=== PATIENT | female | born 1945 | race African-American/Black ===

== ENCOUNTER → 2016-10-03 | Outpatient (CLI) | payer MEDICARE ==
--- NOTE | 2016-10-03 13:37 | KCIC ---
Bilateral digital screening mammograms with CAD: HISTORY Routine screening. COMPARISON Comparison is made to previous studies dated back to 09/28/2013. FINDINGS Breast density category B. The skin and nipples show no abnormalities. No abnormal lymph nodes are seen in the axilla. The breast parenchyma shows scattered fibroglandular density. There continues to be a small nodular density in the lower inner quadrant of the left breast which is unchanged. There are no new dominant masses, suspicious calcifications or architectural distortions. IMPRESSION No evidence of malignancy. Recommend routine annual mammographic screening. This study was interpreted with the benefit of Computerized Aided Detection (CAD). Mammography is not 100% sensitive in detecting breast cancer. Therefore, a self breast exam and a clinical breast exam are very important. A negative mammogram does not negate a clinically suspicious finding and should not result in a delay in biopsying a clinically suspicious abnormality. BI-RADS category 2: Benign. This patient's information has been entered into a reminder system for the patient to be notified with the results of this examination and a target date for her next mammograms. Electronically signed by: Carina Hernandez MD (Oct 03, 2016 13:36:05)
== END | disposition home or self-care (01) ==
LOC: KCIC MAMMO 09:28
PROVIDERS: ATTEND Family Medicine
DX: Z12.31 Encounter for screening mammogram for malignant neoplasm of breast (principal)
CPT/HCPCS: G0202; 77067

== ENCOUNTER → 2016-10-24 | Day surgery (SDC) | payer MEDICARE ==
[~2016-10-24] MED LIST: ACET650T89 PO; AMLO2.5T PO; ASPI325T4 PO; CRESTOR10 MG PO; FAMO-63 PO; HYDROmorphone 2 MG/ML VIAL IV PRN; IV RINGERS,LACTATED 1000ML 1,000 ML IV SCH; LIDOCAINE 1% 1 ML SYRINGE. ID PRN; LISI1TAB3 PO; MORPHINE SULFATE 2 MG/ML DISP.SYRIN. IV PRN; ONDANSETRON PF 4 MG/2 ML VIAL. IV PRN; PROCHLORPERAZINE 10 MG/2 ML VIAL. IV PRN; PROPOFOL 40 ML IV ONE; fentaNYL PF VIAL 100 MCG/2 ML VIAL IV PRN
[2016-10-24 13:53] VITALS: BP 112/51
== END | disposition home or self-care (01) ==
LOC: ENDOS 11:42
PROVIDERS: ATTEND Internal Medicine Gastroenterology
DX: Z12.11 Encounter for screening for malignant neoplasm of colon (principal); K64.0 First degree hemorrhoids; K57.30 Diverticulosis of large intestine without perforation or abscess without bleeding; I10 Essential (primary) hypertension; E78.00 Pure hypercholesterolemia, unspecified; Z86.73 Personal history of transient ischemic attack (TIA), and cerebral infarction without residual deficits; Z82.49 Family history of ischemic heart disease and other diseases of the circulatory system; Z90.710 Acquired absence of both cervix and uterus
CPT/HCPCS: G0121; J2704

== ENCOUNTER → 2017-10-09 | Outpatient (CLI) | payer MEDICARE | END | disposition home or self-care (01) | LOC: KCIC MAMMO 11:57 | DX: Z12.31 Encounter for screening mammogram for malignant neoplasm of breast (principal); E78.00 Pure hypercholesterolemia, unspecified; I10 Essential (primary) hypertension | CPT/HCPCS: 77063; 77067 ==

== ENCOUNTER → 2017-10-17 | Outpatient (CLI) | payer MEDICARE | END | disposition home or self-care (01) | LOC: KCIC DEXA 12:24 | DX: M81.0 Age-related osteoporosis without current pathological fracture (principal) | CPT/HCPCS: 77080 ==

== ENCOUNTER → 2018-10-13 | Outpatient (CLI) | payer MEDICARE ==
[2016-10-24 13:53] VITALS: BP 112/51
[~2018-10-13] MED LIST changes: -AMLO2.5T PO; +AMLO2.5T5 PO; -ASPI325T4 PO; +ASPI325T8 PO; -HYDROmorphone 2 MG/ML VIAL IV PRN; -IV RINGERS,LACTATED 1000ML 1,000 ML IV SCH; -LIDOCAINE 1% 1 ML SYRINGE. ID PRN; -MORPHINE SULFATE 2 MG/ML DISP.SYRIN. IV PRN; -ONDANSETRON PF 4 MG/2 ML VIAL. IV PRN; -PROCHLORPERAZINE 10 MG/2 ML VIAL. IV PRN; -PROPOFOL 40 ML IV ONE; -fentaNYL PF VIAL 100 MCG/2 ML VIAL IV PRN
--- NOTE | 2018-10-14 10:40 | KCIC ---
Bilateral digital screening mammograms with 3-D tomosynthesis: Reason for examination: Routine screening. Comparison is made to previous studies dated 10/09/2017 and 10/03/2016. Bilateral mammograms in CC and oblique projections were obtained with 2-D imaging and 3-D tomosynthesis imaging on a Siemens Inspiration unit and reviewed on the workstation. Interpretation was made with the benefit of CAD. The skin and nipples show no abnormalities. No abnormal axillary lymph nodes are seen. The breast parenchyma shows scattered fatty and fibroglandular density. (Breast density: Category B.) There continue to be small parenchymal densities which are unchanged. There are no new dominant masses, suspicious calcifications or architectural distortion. Impression: No evidence of malignancy. Recommend routine screening. BI-RAD Category 2: Benign. "Our facility is accredited by the [employer] Mammography Program." This patient's information has been entered into a reminder system for the patient to be notified with the results of her examination and a target date for the next mammogram. Electronically signed by: Mel Hernandez MD (10/14/2018 10:37 AM) [id number]
== END | disposition home or self-care (01) ==
LOC: KCIC MAMMO 09:17
PROVIDERS: ATTEND Family Medicine
DX: Z12.31 Encounter for screening mammogram for malignant neoplasm of breast (principal)
CPT/HCPCS: 77063; 77067

== ENCOUNTER → 2020-06-28 | Outpatient (CLI) | payer MEDICARE ==
[2016-10-24 13:53] VITALS: BP 112/51
[~2020-06-28] MED LIST changes: +LISI1TAB23 PO; -LISI1TAB3 PO
--- NOTE | 2020-06-28 17:32 | KCIC ---
Bilateral digital screening mammograms and tomosynthesis Reason for examination: Routine screening. Comparison is made to previous study dated October 13, 2018 and priors Routine CC and MLO digital views obtained. Interpretation was made with the benefit of CAD. The skin and nipples show no abnormalities. No abnormal lymph nodes are seen. The breast parenchyma i s scattered fibroglandular elements. (Breast density: Category B.) There are no suspicious masses, avila spicious calcifications or architectural distortions. Benign calcifications. 1 cm left inner lower br east anterior depth oval circumscribed mass stable to prior studies for over 2 years considered benig n. Right upper outer breast mid depth subcentimeter intramammary lymph node is stable. Right upper avila bareolar breast glandular asymmetry stable, benign. Impression: Negative mammogram. Recommend routine screening. BI-RADS Category 2: Benign. "Our facility is accredited by the [employer] Mammography [employer]." This patient's information has been entered into a reminder system for the patient to be notified wit h the results of her examination and a target date for the next mammogram. Electronically signed by: Sonny Casiano MD (06/28/2020 5:29 PM) [id number]
== END ==
LOC: KCIC MAMMO 09:58
PROVIDERS: ATTEND Nurse Practitioner Family
DX: Z12.31 Encounter for screening mammogram for malignant neoplasm of breast (principal)
CPT/HCPCS: 77063; 77067

== ENCOUNTER 2021-03-31 10:04 | Inpatient (IN) | payer MEDICARE ==
[~2021-03-31] VITALS: Ht 170.2 cm; Wt 72.7 kg
--- NOTE | 2021-03-31 10:43 | PHYS DOC ---
Past Medical History Past Medical History: High Cholesterol, Hypertension, Stroke Additional Past Medical Histor: stroke 2007 left sided weakness Past Surgical History: No Surgical History Smoking Status: Never Smoker Alcohol Use: None Drug Use: None General Adult EDM: Chief Complaint: HIP PAIN HPI: HPI: Patient is a 75-year-old female that presents today with left hip and low back pain. Patient states she woke this morning and went to the restroom and had shooting pains down her left leg. Patient has a history of stroke which is left her left side weak and she uses that leg for pivoting. She states the pain when it does occur goes down her back of her leg and wraps around the front. Patient denies trauma or falling. Patient was told in 2018 that she had some herniated disc in her back but the physician felt they were not surgical at that time. Patient only takes Aleve as needed for pain. Patient denies loss of bowel or bladder control. Review of Systems: Review of Systems: Constitutional: Denies fever or chills. [] Eyes: Denies change in visual acuity. [] HENT: Denies nasal congestion or sore throat. [] Respiratory: Denies cough or shortness of breath. [] Cardiovascular: Denies chest pain or edema. [] GI: Denies abdominal pain, nausea, vomiting, bloody stools or diarrhea. [] : Denies dysuria. [] Musculoskeletal: back pain Integument: Denies rash. [] Neurologic: shooting pain down left leg Endocrine: Denies polyuria or polydipsia. [] Lymphatic: Denies swollen glands. [] Psychiatric: Denies depression or anxiety. [] Heart Score: C/O Chest Pain: N/A Risk Factors: Risk Factors: DM, Current or recent (<one month) smoker, HTN, HLP, family history of CAD, obesity. Risk Scores: Score 0 - 3: 2.5% MACE over next 6 weeks - Discharge Home Score 4 - 6: 20.3% MACE over next 6 weeks - Admit for Clinical Observation Score 7 - 10: 72.7% MACE over next 6 weeks - Early Invasive Strategies Current Medications: Norvasc Lisinopril crestor Advil PRN Allergies: Allergies: Allergies Coded Allergies Type Severity Reaction Last Updated Verified No Known Drug Allergies 10/24/16 No Physical Exam: PE: Constitutional: Well developed, well nourished, no acute distress, non-toxic appearance. [] HENT: Normocephalic, atraumatic, bilateral external ears normal, oropharynx moist, no oral exudates, nose normal. [] Eyes: PERRLA, EOMI, conjunctiva normal, no discharge. [] Neck: Normal range of motion, no tenderness, supple, no stridor. [] Cardiovascular:Heart rate regular rhythm, no murmur [] Lungs & Thorax: Bilateral breath sounds clear to auscultation [] Abdomen: Bowel sounds normal, soft, no tenderness, no masses, no pulsatile masses. [] Skin: Warm, dry, no erythema, no rash. [] Back: tenderness with palpation to low back, no step offs noted. straight leg raise done on right leg and patient had immediate shooting pain down left leg that radiated to back of thigh that wraps around the front. patient has residual weakness in left leg due to stroke. patient wears left brace on foot to help w ith drop foot. sensory is decreased in left leg, patient states that is normal for her since stroke. Extremities: left leg weakness noted, patient states that is normal. Neurologic: Alert and oriented X 3, normal motor function, normal sensory function, no focal deficits noted. [] Psychologic: Affect normal, judgement normal, mood normal. [] Current Patient Data: Labs: Laboratory Tests Test 03/31/21 11:12 03/31/21 11:25 03/31/21 11:40 White Blood Count 6.7 x10^3/uL Red Blood Count 4.39 x10^6/uL Hemoglobin 13.0 g/dL Hematocrit 38.7 % Mean Corpuscular Volume 88 fL Mean Corpuscular Hemoglobin 30 pg Mean Corpuscular Hemoglobin Concent 34 g/dL Red Cell Distribution Width 14.5 % Platelet Count 214 x10^3/uL Neutrophils (%) (Auto) 68 % Lymphocytes (%) (Auto) 24 % Monocytes (%) (Auto) 6 % Eosinophils (%) (Auto) 1 % Basophils (%) (Auto) 1 % Neutrophils # (Auto) 4.5 x10^3/uL Lymphocytes # (Auto) 1.6 x10^3/uL Monocytes # (Auto) 0.4 x10^3/uL Eosinophils # (Auto) 0.1 x10^3/uL Basophils # (Auto) 0.0 x10^3/uL Urine Collection Type Unknown Urine Color Yellow Urine Clarity Clear Urine pH 6.5 Urine Specific Alexander 1.015 Urine Protein Negative mg/dL Urine Glucose (UA) Negative mg/dL Urine Ketones (Stick) Negative mg/dL Urine Blood Trace Urine Nitrite Negative Urine Bilirubin Negative Urine Urobilinogen Dipstick 1.0 mg/dL Urine Leukocyte Esterase Trace Urine RBC 1-2 /HPF Urine WBC Occ /HPF Urine Squamous Epithelial Cells Mod /LPF Urine Bacteria 0 /HPF Sodium Level 139 mmol/L Potassium Level 4.0 mmol/L Chloride Level 104 mmol/L Carbon Dioxide Level 27 mmol/L Anion Gap 8 Blood Urea Nitrogen 19 mg/dL Creatinine 1.1 mg/dL Estimated GFR (Cockcroft-Gault) 58.9 BUN/Creatinine Ratio 17 Glucose Level 123 mg/dL Calcium Level 9.2 mg/dL Total Bilirubin 1.1 mg/dL Aspartate Amino Transf (AST/SGOT) 23 U/L Alanine Aminotransferase (ALT/SGPT) 35 U/L Alkaline Phosphatase 75 U/L Total Protein 7.9 g/dL Albumin 4.0 g/dL Albumin/Globulin Ratio 1.0 Current Medications Medications (Trade) Dose Ordered Sig/Felicity Route PRN Reason Start Time Stop Time Status Last Admin Dose Admin Fentanyl Citrate (Fentanyl 2ml Vial) 50 mcg 1X ONCE IVP 03/31/21 11:00 03/31/21 11:01 DC 03/31/21 11:42 Fentanyl Citrate (Fentanyl 2ml Vial) 50 mcg PRN Q1HR PRN IVP PAIN 03/31/21 12:15 04/01/21 12:14 03/31/21 12:53 Vital Signs: 1200: 142/66 HR 71 EKG: EKG: [] Radiology/Procedures: Radiology/Procedures: [PROCEDURE: HIP LEFT 1 VIEW WITH PELVIS EXAM: Pelvis and left hip, 2 views. HISTORY: Pain. COMPARISON: None. FINDINGS: A frontal view of the pelvis and frog-leg view left hip are obtained. There is no fracture, dislocation or subluxation. There is degenerative change involving the lower lumbar spine, not formally assessed on this exam. There is minimal bilateral hip osteoarthritis. IMPRESSION: No acute osseous finding.] Course & Med Decision Making: Course & Med Decision Making Pertinent Labs and Imaging studies reviewed. (See chart for details) [] Spoke with Dr. Melara about patient and concerns with patient safety at home. Dr. Melara is has accepted this patient as an admission. Patient admitted to [facility] for further evaluation of radiculopathy pain Dragon Disclaimer: Jodi Disclaimer: This electronic medical record was generated, in whole or in part, using a voice recognition dictation system. Departure Departure Impression: Primary Impression: Lumbar radiculopathy, acute Disposition: ADMITTED INPATIENT Admitting Physician: CARA Condition: STABLE Referrals: ZEV HOLLOWAY APRN (PCP) NAM BALL APRN Mar 31, 2021 10:43
[2021-03-31] MEDS ORDERED: fentaNYL PF VIAL 100 MCG/2 ML VIAL IVP ONE (11:00)
--- NOTE | 2021-03-31 11:16 | RAD ---
EXAM: Pelvis and left hip, 2 views. HISTORY: Pain. COMPARISON: None. FINDINGS: A frontal view of the pelvis and frog-leg view left hip are obtained. There is no fracture, dislocation or subluxation. There is degenerative change involving the lower lumbar spine, not forma lly assessed on this exam. There is minimal bilateral hip osteoarthritis. IMPRESSION: No acute osseous finding. Electronically signed by: Angela Beauchamp MD (03/31/2021 11:13 AM) [id number]
[2021-03-31 11:22] LABS: BASO % 1 % (0-3); EOS # 0.1 x10^3/uL (0.0-0.7); EOS % 1 % (0-3); HEMATOCRIT 38.7 % (36.0-47.0); LYMPH # 1.6 x10^3/uL (1.0-4.8); LYMPH % 24 % (24-48); MEAN CORPUSCULAR HEMOGLOBIN 30 pg (25-35); MEAN CORPUSCULAR HGB CONC 34 g/dL (31-37); MEAN CORPUSCULAR VOLUME 88 fL (79-100); MONO # 0.4 x10^3/uL (0.0-1.1); MONO % 6 % (0-9); NEUT # 4.5 x10^3/uL (1.8-7.7); NEUT % 68 % (31-73); PLATELET COUNT 214 x10^3/uL (140-400); RED BLOOD COUNT 4.39 x10^6/uL (3.50-5.40); RED CELL DISTRIBUTION WIDTH 14.5 % (11.5-14.5); WHITE BLOOD COUNT 6.7 x10^3/uL (4.0-11.0)
[2021-03-31 11:48] LABS: BILIRUBIN,URINE NEGATIVE (NEG); CLARITY,URINE CLEAR; COLOR,URINE YELLOW; NITRITE,URINE NEGATIVE (NEG); PH,URINE 6.5 (<5.0-8.0); PROTEIN,URINE NEGATIVE (NEG-TRACE)
[2021-03-31 11:56] LABS: CALCIUM 9.2 mg/dL (8.5-10.1); CREATININE 1.1 mg/dL (0.6-1.0); GFR 58.9
[2021-03-31 12:02] LABS: TOTAL BILIRUBIN 1.1 mg/dL (0.2-1.0); TOTAL PROTEIN 7.9 g/dL (6.4-8.2)
[2021-03-31 12:09] LABS: BACTERIA,URINE 0 /HPF (0-FEW); WBC,URINE OCC /HPF (0-4)
[2021-03-31] MEDS ORDERED: fentaNYL PF VIAL 100 MCG/2 ML VIAL IVP PRN (12:15)
--- NOTE | 2021-03-31 13:22 | PDOC1 ---
History and Physical Date of Service: DOS: DATE: 03/31/21 TIME: 13:02 Chief Complaint: Chief Complain: Back pain and lower leg pain History of Present Illness: HPI: History obtained from discussion with the patient and daughter in room and ED physician and chart review: 75-year-old female with past medical history of hypertension and stroke in 2006 with residual left-sided weakness, dyslipidemia presents with worsening left hip and lower back pain. Patient describes the pain as sharp and shooting in nature from the lower back to the left hip area and left lower leg. She does participate well with stroke scale therapy as an outpatient. From her stroke in 2006 she was pretty much left paralyzed in her entire left side excluding her face. Patient denies any history of trauma, loss of consciousness, fall, dizziness or syncope. In 2018 patient was told that she had a herniated disc in her back but this was nonsurgical. Patient does take Aleve for headaches. She tries to avoid narcotics as she does not want to become addicted. Past Medical/Surgical History: PMH/PSH: Past Medical History: High Cholesterol, Hypertension, stroke 2007 left sided weakness Past Surgical History: No Surgical History Allergies: Allergies: Coded Allergies: No Known Drug Allergies (Unverified , 10/24/16) Family History: Family History: Reviewed with no relevant findings Social History: Social History: Smoking Status: Never Smoker Alcohol Use: None Drug Use: None Current Medications: Current Medications Current Medications Fentanyl Citrate (Fentanyl 2ml Vial) 50 mcg 1X ONCE IVP Last administered on 03/31/21at 11:42; Start 03/31/21 at 11:00; Stop 03/31/21 at 11:01; Status DC Fentanyl Citrate (Fentanyl 2ml Vial) 50 mcg PRN Q1HR PRN IVP PAIN Last administered on 03/31/21at 12:53; Start 03/31/21 at 12:15; Stop 04/01/21 at 12:14 Active Scripts Active Reported Arthritis Pain (Acetaminophen) 650 Mg Tablet.er 650 Mg PO BID Aspirin 325 Mg Tablet 1 Tab PO DAILY Pepcid (Famotidine) 20 Mg Tablet 20 Mg PO HS Amlodipine Besylate 2.5 Mg Tablet 2.5 Mg PO DAILY Lisinopril-Hctz 10-12.5 Mg Tab (Lisinopril/Hydrochlorothiazide) 1 Each Tablet 1 Tab PO DAILY Crestor (Rosuvastatin Calcium) 10 Mg Tablet 10 Mg PO HS ROS: Review of Systems Review of System REVIEW OF SYSTEMS: GENERAL: Denies weakness SKIN: No bruising, hair changes or rashes. EYES: No blurred, double or loss of vision. NOSE AND THROAT: No history of nosebleeds, hoarseness or sore throat. HEART: No history of palpitations, chest pain or shortness of breath on exertion. LUNGS: Denies cough, hemoptysis, wheezing or shortness of breath. GASTROINTESTINAL: Denies changes in appetite, nausea, vomiting, diarrhea or constipation. GENITOURINARY: No history of frequency, urgency, hesitancy or nocturia. NEUROLOGIC: Denies history of numbness, tingling, or tremor. PSYCHIATRIC: No history of panic, anxiety or depression. ENDOCRINE: No history of heat or cold intolerance, polyuria or polydipsia. EXTREMITIES: Denies joint pain, pain on walking or stiffness. Physical Exam: Vital Signs: Vital Signs Date Time Temp Pulse Resp B/P (MAP) Pulse Ox O2 Delivery O2 Flow Rate FiO2 03/31/21 11:28 73 142/66 (91) 98 Room Air 03/31/21 10:31 98.1 12 98.1 Physcial Exam: GEN: No apparent distress. Alert and oriented HEENT: Normal cephalic, atraumatic, external auditory canals are patent EYES: Extraocular muscles are intact, pupil are equally round and reactive to light and accommodation MUSCULOSKELETAL: Well developed , well nourished, good range of motion ENDOCRINE: No thyromegaly was palpated LYMPHATICS: No cervical chain or axillary nodes were noted HEMATOPOIETIC: No bruising NECK: Supple, no JVD, no thyromegaly was noted LUNGS: Clear to auscultation in all lung grissom without rhonchi or wheezing HEART: RRR, S!, S2 present. Peripheral pulses intact, no obvious murmurs noted ABDOMEN: Soft, nontender. Positive bowel sounds, no organomegaly, normal bowel sounds EXTREMITIES: Without clubbing, cyanosis, or edema. Pedal pulses intact. Negative Homans sign NEUROLOGIC: Normal speech and tone. A&O x 3, moves all extremities, no obvious focal deficits PSYCHIATRIC: Normal affect, normal mood. Stable SKIN: No ulcerations or rashes, good skin turgor, no jaundice VASCULAR: Good capillary refill, neurovascular bundle appears to be intact Labs: Labs: Laboratory Tests Test 03/31/21 11:12 03/31/21 11:25 03/31/21 11:40 White Blood Count 6.7 x10^3/uL (4.0-11.0) Red Blood Count 4.39 x10^6/uL (3.50-5.40) Hemoglobin 13.0 g/dL (12.0-15.5) Hematocrit 38.7 % (36.0-47.0) Mean Corpuscular Volume 88 fL (79-100) Mean Corpuscular Hemoglobin 30 pg (25-35) Mean Corpuscular Hemoglobin Concent 34 g/dL (31-37) Red Cell Distribution Width 14.5 % (11.5-14.5) Platelet Count 214 x10^3/uL (140-400) Neutrophils (%) (Auto) 68 % (31-73) Lymphocytes (%) (Auto) 24 % (24-48) Monocytes (%) (Auto) 6 % (0-9) Eosinophils (%) (Auto) 1 % (0-3) Basophils (%) (Auto) 1 % (0-3) Neutrophils # (Auto) 4.5 x10^3/uL (1.8-7.7) Lymphocytes # (Auto) 1.6 x10^3/uL (1.0-4.8) Monocytes # (Auto) 0.4 x10^3/uL (0.0-1.1) Eosinophils # (Auto) 0.1 x10^3/uL (0.0-0.7) Basophils # (Auto) 0.0 x10^3/uL (0.0-0.2) Urine Collection Type Unknown Urine Color Yellow Urine Clarity Clear Urine pH 6.5 (<5.0-8.0) Urine Specific Moyers 1.015 (1.000-1.030) Urine Protein Negative mg/dL (NEG-TRACE) Urine Glucose (UA) Negative mg/dL (NEG) Urine Ketones (Stick) Negative mg/dL (NEG) Urine Blood Trace (NEG) Urine Nitrite Negative (NEG) Urine Bilirubin Negative (NEG) Urine Urobilinogen Dipstick 1.0 mg/dL (0.2 mg/dL) Urine Leukocyte Esterase Trace (NEG) Urine RBC 1-2 /HPF (0-2) Urine WBC Occ /HPF (0-4) Urine Squamous Epithelial Cells Mod /LPF Urine Bacteria 0 /HPF (0-FEW) Sodium Level 139 mmol/L (136-145) Potassium Level 4.0 mmol/L (3.5-5.1) Chloride Level 104 mmol/L (98-107) Carbon Dioxide Level 27 mmol/L (21-32) Anion Gap 8 (6-14) Blood Urea Nitrogen 19 mg/dL (7-20) Creatinine 1.1 mg/dL (0.6-1.0) Estimated GFR (Cockcroft-Gault) 58.9 BUN/Creatinine Ratio 17 (6-20) Glucose Level 123 mg/dL (70-99) Calcium Level 9.2 mg/dL (8.5-10.1) Total Bilirubin 1.1 mg/dL (0.2-1.0) Aspartate Amino Transf (AST/SGOT) 23 U/L (15-37) Alanine Aminotransferase (ALT/SGPT) 35 U/L (14-59) Alkaline Phosphatase 75 U/L (46-116) Total Protein 7.9 g/dL (6.4-8.2) Albumin 4.0 g/dL (3.4-5.0) Albumin/Globulin Ratio 1.0 (1.0-1.7) Laboratory Tests Test 03/31/21 11:12 03/31/21 11:25 03/31/21 11:40 White Blood Count 6.7 x10^3/uL (4.0-11.0) Red Blood Count 4.39 x10^6/uL (3.50-5.40) Hemoglobin 13.0 g/dL (12.0-15.5) Hematocrit 38.7 % (36.0-47.0) Mean Corpuscular Volume 88 fL (79-100) Mean Corpuscular Hemoglobin 30 pg (25-35) Mean Corpuscular Hemoglobin Concent 34 g/dL (31-37) Red Cell Distribution Width 14.5 % (11.5-14.5) Platelet Count 214 x10^3/uL (140-400) Neutrophils (%) (Auto) 68 % (31-73) Lymphocytes (%) (Auto) 24 % (24-48) Monocytes (%) (Auto) 6 % (0-9) Eosinophils (%) (Auto) 1 % (0-3) Basophils (%) (Auto) 1 % (0-3) Neutrophils # (Auto) 4.5 x10^3/uL (1.8-7.7) Lymphocytes # (Auto) 1.6 x10^3/uL (1.0-4.8) Monocytes # (Auto) 0.4 x10^3/uL (0.0-1.1) Eosinophils # (Auto) 0.1 x10^3/uL (0.0-0.7) Basophils # (Auto) 0.0 x10^3/uL (0.0-0.2) Urine Collection Type Unknown Urine Color Yellow Urine Clarity Clear Urine pH 6.5 (<5.0-8.0) Urine Specific Moyers 1.015 (1.000-1.030) Urine Protein Negative mg/dL (NEG-TRACE) Urine Glucose (UA) Negative mg/dL (NEG) Urine Ketones (Stick) Negative mg/dL (NEG) Urine Blood Trace (NEG) Urine Nitrite Negative (NEG) Urine Bilirubin Negative (NEG) Urine Urobilinogen Dipstick 1.0 mg/dL (0.2 mg/dL) Urine Leukocyte Esterase Trace (NEG) Urine RBC 1-2 /HPF (0-2) Urine WBC Occ /HPF (0-4) Urine Squamous Epithelial Cells Mod /LPF Urine Bacteria 0 /HPF (0-FEW) Sodium Level 139 mmol/L (136-145) Potassium Level 4.0 mmol/L (3.5-5.1) Chloride Level 104 mmol/L (98-107) Carbon Dioxide Level 27 mmol/L (21-32) Anion Gap 8 (6-14) Blood Urea Nitrogen 19 mg/dL (7-20) Creatinine 1.1 mg/dL (0.6-1.0) Estimated GFR (Cockcroft-Gault) 58.9 BUN/Creatinine Ratio 17 (6-20) Glucose Level 123 mg/dL (70-99) Calcium Level 9.2 mg/dL (8.5-10.1) Total Bilirubin 1.1 mg/dL (0.2-1.0) Aspartate Amino Transf (AST/SGOT) 23 U/L (15-37) Alanine Aminotransferase (ALT/SGPT) 35 U/L (14-59) Alkaline Phosphatase 75 U/L (46-116) Total Protein 7.9 g/dL (6.4-8.2) Albumin 4.0 g/dL (3.4-5.0) Albumin/Globulin Ratio 1.0 (1.0-1.7) Images: Images PROCEDURE: HIP LEFT 1 VIEW WITH PELVIS EXAM: Pelvis and left hip, 2 views. HISTORY: Pain. COMPARISON: None. FINDINGS: A frontal view of the pelvis and frog-leg view left hip are obtained. There is no fracture, dislocation or subluxation. There is degenerative change involving the lower lumbar spine, not formally assessed on this exam. There is minimal bilateral hip osteoarthritis. IMPRESSION: No acute osseous finding. Assessment/Plan Assessment/Plan Acute intractable lower back pain and leg pain suggestive of radiculopathy History of stroke History of hypertension History of dyslipidemia Debilitation Admit to hospitalist service for further management IV n.p.o. pain control Consult Dr. Tate for MSK and radiculopathic pain Consider neurology consult if this is an evolution of previous stroke sequela PT OT SCD for DVT prophylaxis Cardiac diet CODE STATUS full Discussed with RN and SW Disposition inpatient management as above DPOA: In addition to my E/M visit, advance care planning done with A total time of 20 minutes was spent from 1230 to 1250 face to face in discussion with the patient and family regarding their goals of care, CODE STATUS. Justifications for Admission Other Justification LINA SEE MD Mar 31, 2021 13:22
[2021-03-31] MEDS ORDERED: METHOCARBAMOL 500 MG TABLET PO PRN (13:30)
[2021-03-31] MEDS ORDERED: ONDANSETRON PF 4 MG/2 ML VIAL. IVP PRN (13:30)
[2021-03-31] MEDS ORDERED: DEXTROSE 50% 25 GM / 50ML DISP.SYRIN. IV PRN (13:30)
[2021-03-31] MEDS ORDERED: SENNOSIDES 8.6 MG TABLET PO PRN (13:30)
[2021-03-31] MEDS ORDERED: LORazepam 0.5 MG TABLET PO PRN (13:30)
[2021-03-31] MEDS ORDERED: DOCUSATE SODIUM 100 MG CAPSULE. PO PRN (13:30)
[2021-03-31] MEDS ORDERED: MORPHINE SULFATE 2 MG/ML INJ. IVP PRN (13:30)
[2021-03-31] MEDS ORDERED: ZOLPIDEM 5 MG TABLET. PO PRN (13:30)
[2021-03-31] MEDS ORDERED: MORPHINE SULFATE 2 MG/ML INJ. IV PRN (13:30)
[2021-03-31] MEDS ORDERED: ACETAMINOPHEN 325 MG TABLET. PO PRN (13:30)
[2021-03-31] MEDS ORDERED: PROCHLORPERAZINE 10 MG/2 ML VIAL. IV PRN (13:30)
[2021-03-31 15:00] VITALS: BP 132/60
[2021-03-31] MEDS: oxyCODONE/APAP 5/325 1 TAB TABLET PO PRN (15:49)
[2021-03-31] MEDS: LIDOCAINE (700MG/PATCH) PATCH. TD SCH (16:28)
[2021-03-31 19:00] VITALS: BP 132/54
[2021-03-31] MEDS: PATCH REMOVAL. MC SCH (21:00)
[2021-03-31 23:53] VITALS: BP 128/53
[2021-04-01 03:17] VITALS: BP 125/72
[2021-04-01 06:54] VITALS: BP 156/72
[2021-04-01 08:03] LABS: BASO % 1 % (0-3); EOS # 0.1 x10^3/uL (0.0-0.7); EOS % 2 % (0-3); HEMATOCRIT 38.5 % (36.0-47.0); HEMOGLOBIN 13.5 g/dL (12.0-15.5); LYMPH # 1.8 x10^3/uL (1.0-4.8); LYMPH % 29 % (24-48); MEAN CORPUSCULAR HEMOGLOBIN 31 pg (25-35); MEAN CORPUSCULAR HGB CONC 35 g/dL (31-37); MEAN CORPUSCULAR VOLUME 88 fL (79-100); MONO # 0.4 x10^3/uL (0.0-1.1); MONO % 7 % (0-9); NEUT # 3.8 x10^3/uL (1.8-7.7); NEUT % 62 % (31-73); PLATELET COUNT 195 x10^3/uL (140-400); RED BLOOD COUNT 4.38 x10^6/uL (3.50-5.40); RED CELL DISTRIBUTION WIDTH 14.3 % (11.5-14.5); WHITE BLOOD COUNT 6.2 x10^3/uL (4.0-11.0)
[2021-04-01 08:32] LABS: CALCIUM 8.6 mg/dL (8.5-10.1); GFR 65.8; MAGNESIUM 2.1 mg/dL (1.8-2.4); PHOSPHORUS 2.7 mg/dL (2.6-4.7); POTASSIUM 3.6 mmol/L (3.5-5.1)
[2021-04-01] MEDS: LIDOCAINE (700MG/PATCH) PATCH. TD SCH (09:30)
[2021-04-01] MEDS: oxyCODONE/APAP 5/325 1 TAB TABLET PO PRN ×3 (09:33→21:37)
[2021-04-01 11:00] VITALS: BP 136/60
--- NOTE | 2021-04-01 13:48 | PDOC ---
GENERAL General: Patient examined chart reviewed today is hospital day 2 for this patient with intermittent left lower extremity paresthesias and pain. 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 She lives with her who is a good caregiver but she works hard to try to maintain her independence with all activities of daily living and independent activities of daily living. She presented to the emergency department yesterday with uncontrolled pain. She has seen Dr. Tate in the past and tells me that his interventions were quite helpful last time she saw him was several years ago. He has been consulted for assessment here. Patient is very resistant to narcotics as she does not want to run into trouble with them. She does not remember whether she had neuropathy medications in the past but is willing to try now. She denies any other new specific constitutional symptoms. She did not have a recent fall. All other systems reviewed and negative. Problems: (1) Pain (2) Lumbar radiculopathy, acute (3) Left hemiparesis (4) History of stroke VITAL SIGNS Vital Signs/I&O: Vital Signs Date Time Temp Pulse Resp B/P (MAP) Pulse Ox O2 Delivery O2 Flow Rate FiO2 04/01/21 11:00 97.5 81 18 136/60 (85) 96 Room Air 97.5 I & O 03/31/21 03/31/21 04/01/21 15:00 23:00 07:00 Intake Total 300 ml Output Total 2 ml 0 ml Balance 298 ml 0 ml In general the patient is pleasant alert and oriented x3 no acute distress HEENT exam is unremarkable Chest is clear to auscultation Heart S1-S2 normal regular rate and rhythm no murmurs or gallops are noted Abdomen soft nontender nondistended no masses organomegaly noted Extremity exam is notable for left hemiparesis that is chronic since stroke in 2006. No acute joint deformity or tenderness is noted ALLERGIES Allergies: Allergies Coded Allergies Type Severity Reaction Last Updated Verified No Known Drug Allergies 10/24/16 No MEDS Medications: Current Medications Medications (Trade) Dose Ordered Sig/Felicity Start Time Stop Time Status Last Admin Dose Admin Acetaminophen (Tylenol) 650 mg PRN Q4HRS PRN 03/31/21 13:30 Dextrose (Dextrose 50%-Water Syringe) 12.5 gm PRN Q15MIN PRN 03/31/21 13:30 Docusate Sodium (Colace) 100 mg PRN DAILY PRN 03/31/21 13:30 04/01/21 12:53 Famotidine (Pepcid) 20 mg BID 04/01/21 21:00 Fentanyl Citrate (Fentanyl 2ml Vial) 50 mcg PRN Q1HR PRN 03/31/21 12:15 04/01/21 12:14 DC 03/31/21 12:53 Lidocaine (Lidoderm) 1 patch DAILY 03/31/21 14:00 04/01/21 09:30 Lorazepam (Ativan Inj) 0.25 mg PRN Q4HRS PRN 03/31/21 13:30 Lorazepam (Ativan) 0.5 mg PRN Q6HRS PRN 03/31/21 13:30 Methocarbamol (Robaxin) 500 mg PRN Q8HRS PRN 03/31/21 13:30 Miscellaneous (Lidoderm Patch Removal) 1 ea QHS 03/31/21 21:00 03/31/21 21:00 Morphine Sulfate (Morphine Sulfate) 2 mg PRN Q2HR PRN 03/31/21 13:30 04/01/21 13:29 Ondansetron HCl (Zofran) 4 mg PRN Q6HRS PRN 03/31/21 13:30 Oxycodone/ Acetaminophen (Percocet 5/325) 2 tab PRN Q4HRS PRN 03/31/21 13:30 04/01/21 09:33 Prochlorperazine Edisylate (Compazine) 10 mg PRN Q6HRS PRN 03/31/21 13:30 Sennosides (Senna) 17.2 mg PRN BID PRN 03/31/21 13:30 Zolpidem Tartrate (Ambien) 2.5 mg PRN QHS PRN 03/31/21 13:30 Current Medications Medications (Trade) Dose Ordered Sig/Felicity Route PRN Reason Start Time Stop Time Status Last Admin Dose Admin Lidocaine (Lidoderm) 1 patch DAILY TD 03/31/21 14:00 04/01/21 09:30 Miscellaneous (Lidoderm Patch Removal) 1 ea QHS MC 03/31/21 21:00 03/31/21 21:00 LAB Lab: Laboratory Tests Test 04/01/21 06:20 04/01/21 06:35 White Blood Count 6.2 x10^3/uL (4.0-11.0) Red Blood Count 4.38 x10^6/uL (3.50-5.40) Hemoglobin 13.5 g/dL (12.0-15.5) Hematocrit 38.5 % (36.0-47.0) Mean Corpuscular Volume 88 fL (79-100) Mean Corpuscular Hemoglobin 31 pg (25-35) Mean Corpuscular Hemoglobin Concent 35 g/dL (31-37) Red Cell Distribution Width 14.3 % (11.5-14.5) Platelet Count 195 x10^3/uL (140-400) Neutrophils (%) (Auto) 62 % (31-73) Lymphocytes (%) (Auto) 29 % (24-48) Monocytes (%) (Auto) 7 % (0-9) Eosinophils (%) (Auto) 2 % (0-3) Basophils (%) (Auto) 1 % (0-3) Neutrophils # (Auto) 3.8 x10^3/uL (1.8-7.7) Lymphocytes # (Auto) 1.8 x10^3/uL (1.0-4.8) Monocytes # (Auto) 0.4 x10^3/uL (0.0-1.1) Eosinophils # (Auto) 0.1 x10^3/uL (0.0-0.7) Basophils # (Auto) 0.0 x10^3/uL (0.0-0.2) Sodium Level 138 mmol/L (136-145) Potassium Level 3.6 mmol/L (3.5-5.1) Chloride Level 103 mmol/L (98-107) Carbon Dioxide Level 25 mmol/L (21-32) Anion Gap 10 (6-14) Blood Urea Nitrogen 16 mg/dL (7-20) Creatinine 1.0 mg/dL (0.6-1.0) Estimated GFR (Cockcroft-Gault) 65.8 Glucose Level 104 mg/dL (70-99) H Calcium Level 8.6 mg/dL (8.5-10.1) Phosphorus Level 2.7 mg/dL (2.6-4.7) Magnesium Level 2.1 mg/dL (1.8-2.4) Laboratory Tests 04/01/21 06:20 Laboratory Tests 04/01/21 06:35 ASSESSMENT & PLAN A&P Plan as noted above This note was created using [email or web address] and may have omissions and/or errors due to the nature of real-time voice nylon mender. Justifications for Admission Other Justification Intractible back pain CHRIS PALMER MD Apr 01, 2021 13:48
[2021-04-01] MEDS: GABAPENTIN 100 MG CAPSULE. PO SCH ×2 (14:38→21:36)
[2021-04-01 15:00] VITALS: BP 121/71
[2021-04-01 19:00] VITALS: BP 128/74
[2021-04-01] MEDS: PATCH REMOVAL. MC SCH (21:00)
[2021-04-01] MEDS: FAMOTIDINE 20 MG TABLET. PO SCH (21:36)
[2021-04-01 22:50] VITALS: BP 124/72
[2021-04-02] MEDS: oxyCODONE/APAP 5/325 1 TAB TABLET PO PRN (02:00)
[2021-04-02 02:58] VITALS: BP 129/69
[2021-04-02 06:48] LABS: ALBUMIN 3.4 g/dL (3.4-5.0); CALCIUM 8.5 mg/dL (8.5-10.1); GFR 65.8; MAGNESIUM 2.2 mg/dL (1.8-2.4); POTASSIUM 3.7 mmol/L (3.5-5.1); TOTAL BILIRUBIN 0.8 mg/dL (0.2-1.0); TOTAL PROTEIN 6.9 g/dL (6.4-8.2)
[2021-04-02 07:00] VITALS: BP 144/62
[2021-04-02 07:11] LABS: BASO % 1 % (0-3); EOS # 0.1 x10^3/uL (0.0-0.7); EOS % 2 % (0-3); HEMATOCRIT 36.7 % (36.0-47.0); HEMOGLOBIN 12.1 g/dL (12.0-15.5); LYMPH # 1.7 x10^3/uL (1.0-4.8); LYMPH % 27 % (24-48); MEAN CORPUSCULAR HEMOGLOBIN 29 pg (25-35); MEAN CORPUSCULAR HGB CONC 33 g/dL (31-37); MEAN CORPUSCULAR VOLUME 89 fL (79-100); MONO # 0.4 x10^3/uL (0.0-1.1); MONO % 6 % (0-9); NEUT # 4.2 x10^3/uL (1.8-7.7); NEUT % 65 % (31-73); PLATELET COUNT 179 x10^3/uL (140-400); RED BLOOD COUNT 4.15 x10^6/uL (3.50-5.40); RED CELL DISTRIBUTION WIDTH 14.5 % (11.5-14.5); WHITE BLOOD COUNT 6.5 x10^3/uL (4.0-11.0)
[2021-04-02] MEDS: LIDOCAINE (700MG/PATCH) PATCH. TD SCH (09:00)
[2021-04-02] MEDS ORDERED: methylPREDNISolone ACETATE 80 MG/ML VIAL. IM ONE ×2 (09:15)
[2021-04-02] MEDS ORDERED: methylPREDNISolone ACETATE 40 MG/ML VIAL. IM ONE ×2 (09:15→09:30)
[2021-04-02] MEDS ORDERED: BUPIVACAINE MPF 0.25% 10 ML VIAL. IJ ONE (09:15)
--- NOTE | 2021-04-02 09:38 | PDOC4 ---
PROCEDURE Procedure At her request,I have injected painful left sacroiliac joint area and left t rochanteric bursa under aseptic skin technique with alcohol skin prep using 4 ml of 0.25% marcaine solution mixed with 2 ml of depomedrol 40 mg/ 1 ml solution and she tolerated the procedures satisfactorily without any side effects. PIETER REYES MD Apr 02, 2021 09:38
[2021-04-02] MEDS ORDERED: LIDO700A21 TD (09:55)
[2021-04-02] MEDS ORDERED: DOCU-109 PO (09:55)
[2021-04-02] MEDS ORDERED: TRAM-48 PO (09:55)
[2021-04-02] MEDS ORDERED: GABA-585 PO (09:55)
--- NOTE | 2021-04-02 10:03 | PDOC3 ---
Discharge Summary Visit Information Date of Admission: Mar 31, 2021 Date of Discharge: Apr 02, 2021 Final Diagnosis Acute intractable lower back pain and leg pain suggestive of radiculopathy History of stroke, with chronic left weakness, and difficulty walking, hemiparesis, and fall risk from physical debility History of hypertension History of dyslipidemia Debilitation Problems Medical Problems: (1) Lumbar radiculopathy, acute Status: Acute (2) Pain Status: Acute Brief Hospital Course Allergies Allergies Coded Allergies Type Severity Reaction Last Updated Verified No Known Drug Allergies 10/24/16 No Vital Signs Vital Signs Date Time Temp Pulse Resp B/P (MAP) Pulse Ox O2 Delivery O2 Flow Rate FiO2 04/02/21 07:00 98.2 75 18 144/62 (89) 97 Room Air 98.2 Lab Results Laboratory Tests Test 03/31/21 11:12 03/31/21 11:25 03/31/21 11:40 04/01/21 06:20 White Blood Count 6.7 x10^3/uL (4.0-11.0) 6.2 x10^3/uL (4.0-11.0) Red Blood Count 4.39 x10^6/uL (3.50-5.40) 4.38 x10^6/uL (3.50-5.40) Hemoglobin 13.0 g/dL (12.0-15.5) 13.5 g/dL (12.0-15.5) Hematocrit 38.7 % (36.0-47.0) 38.5 % (36.0-47.0) Mean Corpuscular Volume 88 fL (79-100) 88 fL (79-100) Mean Corpuscular Hemoglobin 30 pg (25-35) 31 pg (25-35) Mean Corpuscular Hemoglobin Concent 34 g/dL (31-37) 35 g/dL (31-37) Red Cell Distribution Width 14.5 % (11.5-14.5) 14.3 % (11.5-14.5) Platelet Count 214 x10^3/uL (140-400) 195 x10^3/uL (140-400) Neutrophils (%) (Auto) 68 % (31-73) 62 % (31-73) Lymphocytes (%) (Auto) 24 % (24-48) 29 % (24-48) Monocytes (%) (Auto) 6 % (0-9) 7 % (0-9) Eosinophils (%) (Auto) 1 % (0-3) 2 % (0-3) Basophils (%) (Auto) 1 % (0-3) 1 % (0-3) Neutrophils # (Auto) 4.5 x10^3/uL (1.8-7.7) 3.8 x10^3/uL (1.8-7.7) Lymphocytes # (Auto) 1.6 x10^3/uL (1.0-4.8) 1.8 x10^3/uL (1.0-4.8) Monocytes # (Auto) 0.4 x10^3/uL (0.0-1.1) 0.4 x10^3/uL (0.0-1.1) Eosinophils # (Auto) 0.1 x10^3/uL (0.0-0.7) 0.1 x10^3/uL (0.0-0.7) Basophils # (Auto) 0.0 x10^3/uL (0.0-0.2) 0.0 x10^3/uL (0.0-0.2) Urine Collection Type Unknown Urine Color Yellow Urine Clarity Clear Urine pH 6.5 (<5.0-8.0) Urine Specific [place] 1.015 (1.000-1.030) Urine Protein Negative mg/dL (NEG-TRACE) Urine Glucose (UA) Negative mg/dL (NEG) Urine Ketones (Stick) Negative mg/dL (NEG) Urine Blood Trace (NEG) Urine Nitrite Negative (NEG) Urine Bilirubin Negative (NEG) Urine Urobilinogen Dipstick 1.0 mg/dL (0.2 mg/dL) Urine Leukocyte Esterase Trace (NEG) Urine RBC 1-2 /HPF (0-2) Urine WBC Occ /HPF (0-4) Urine Squamous Epithelial Cells Mod /LPF Urine Bacteria 0 /HPF (0-FEW) Sodium Level 139 mmol/L (136-145) Potassium Level 4.0 mmol/L (3.5-5.1) Chloride Level 104 mmol/L (98-107) Carbon Dioxide Level 27 mmol/L (21-32) Anion Gap 8 (6-14) Blood Urea Nitrogen 19 mg/dL (7-20) Creatinine 1.1 mg/dL (0.6-1.0) Estimated GFR (Cockcroft-Gault) 58.9 BUN/Creatinine Ratio 17 (6-20) Glucose Level 123 mg/dL (70-99) Calcium Level 9.2 mg/dL (8.5-10.1) Total Bilirubin 1.1 mg/dL (0.2-1.0) Aspartate Amino Transf (AST/SGOT) 23 U/L (15-37) Alanine Aminotransferase (ALT/SGPT) 35 U/L (14-59) Alkaline Phosphatase 75 U/L (46-116) Total Protein 7.9 g/dL (6.4-8.2) Albumin 4.0 g/dL (3.4-5.0) Albumin/Globulin Ratio 1.0 (1.0-1.7) Test 04/01/21 06:35 04/02/21 05:45 Sodium Level 138 mmol/L (136-145) 138 mmol/L (136-145) Potassium Level 3.6 mmol/L (3.5-5.1) 3.7 mmol/L (3.5-5.1) Chloride Level 103 mmol/L (98-107) 103 mmol/L (98-107) Carbon Dioxide Level 25 mmol/L (21-32) 28 mmol/L (21-32) Anion Gap 10 (6-14) 7 (6-14) Blood Urea Nitrogen 16 mg/dL (7-20) 12 mg/dL (7-20) Creatinine 1.0 mg/dL (0.6-1.0) 1.0 mg/dL (0.6-1.0) Estimated GFR (Cockcroft-Gault) 65.8 65.8 Glucose Level 104 mg/dL (70-99) 106 mg/dL (70-99) Calcium Level 8.6 mg/dL (8.5-10.1) 8.5 mg/dL (8.5-10.1) Phosphorus Level 2.7 mg/dL (2.6-4.7) Magnesium Level 2.1 mg/dL (1.8-2.4) 2.2 mg/dL (1.8-2.4) White Blood Count 6.5 x10^3/uL (4.0-11.0) Red Blood Count 4.15 x10^6/uL (3.50-5.40) Hemoglobin 12.1 g/dL (12.0-15.5) Hematocrit 36.7 % (36.0-47.0) Mean Corpuscular Volume 89 fL (79-100) Mean Corpuscular Hemoglobin 29 pg (25-35) Mean Corpuscular Hemoglobin Concent 33 g/dL (31-37) Red Cell Distribution Width 14.5 % (11.5-14.5) Platelet Count 179 x10^3/uL (140-400) Neutrophils (%) (Auto) 65 % (31-73) Lymphocytes (%) (Auto) 27 % (24-48) Monocytes (%) (Auto) 6 % (0-9) Eosinophils (%) (Auto) 2 % (0-3) Basophils (%) (Auto) 1 % (0-3) Neutrophils # (Auto) 4.2 x10^3/uL (1.8-7.7) Lymphocytes # (Auto) 1.7 x10^3/uL (1.0-4.8) Monocytes # (Auto) 0.4 x10^3/uL (0.0-1.1) Eosinophils # (Auto) 0.1 x10^3/uL (0.0-0.7) Basophils # (Auto) 0.0 x10^3/uL (0.0-0.2) BUN/Creatinine Ratio 12 (6-20) Total Bilirubin 0.8 mg/dL (0.2-1.0) Aspartate Amino Transf (AST/SGOT) 24 U/L (15-37) Alanine Aminotransferase (ALT/SGPT) 32 U/L (14-59) Alkaline Phosphatase 61 U/L (46-116) Total Protein 6.9 g/dL (6.4-8.2) Albumin 3.4 g/dL (3.4-5.0) Albumin/Globulin Ratio 1.0 (1.0-1.7) Laboratory Tests Test 04/02/21 05:45 White Blood Count 6.5 x10^3/uL (4.0-11.0) Red Blood Count 4.15 x10^6/uL (3.50-5.40) Hemoglobin 12.1 g/dL (12.0-15.5) Hematocrit 36.7 % (36.0-47.0) Mean Corpuscular Volume 89 fL (79-100) Mean Corpuscular Hemoglobin 29 pg (25-35) Mean Corpuscular Hemoglobin Concent 33 g/dL (31-37) Red Cell Distribution Width 14.5 % (11.5-14.5) Platelet Count 179 x10^3/uL (140-400) Neutrophils (%) (Auto) 65 % (31-73) Lymphocytes (%) (Auto) 27 % (24-48) Monocytes (%) (Auto) 6 % (0-9) Eosinophils (%) (Auto) 2 % (0-3) Basophils (%) (Auto) 1 % (0-3) Neutrophils # (Auto) 4.2 x10^3/uL (1.8-7.7) Lymphocytes # (Auto) 1.7 x10^3/uL (1.0-4.8) Monocytes # (Auto) 0.4 x10^3/uL (0.0-1.1) Eosinophils # (Auto) 0.1 x10^3/uL (0.0-0.7) Basophils # (Auto) 0.0 x10^3/uL (0.0-0.2) Sodium Level 138 mmol/L (136-145) Potassium Level 3.7 mmol/L (3.5-5.1) Chloride Level 103 mmol/L (98-107) Carbon Dioxide Level 28 mmol/L (21-32) Anion Gap 7 (6-14) Blood Urea Nitrogen 12 mg/dL (7-20) Creatinine 1.0 mg/dL (0.6-1.0) Estimated GFR (Cockcroft-Gault) 65.8 BUN/Creatinine Ratio 12 (6-20) Glucose Level 106 mg/dL (70-99) Calcium Level 8.5 mg/dL (8.5-10.1) Magnesium Level 2.2 mg/dL (1.8-2.4) Total Bilirubin 0.8 mg/dL (0.2-1.0) Aspartate Amino Transf (AST/SGOT) 24 U/L (15-37) Alanine Aminotransferase (ALT/SGPT) 32 U/L (14-59) Alkaline Phosphatase 61 U/L (46-116) Total Protein 6.9 g/dL (6.4-8.2) Albumin 3.4 g/dL (3.4-5.0) Albumin/Globulin Ratio 1.0 (1.0-1.7) Brief Hospital Course Ms. Siegel is a 75 old admit for intractable back pain, Consult Dr. Tate for MSK and radiculopathic pain he injected her SI joint and other area, pain better, needs P T and OT, can do home health, previous stroke sequela limits, left sided residual weakness, hemiparesis Discharge Information Condition at Discharge: Improved Follow Up: Weeks Disposition/Orders: D/C to Home w/ HH Scheduled Acetaminophen (Arthritis Pain) 650 Mg Tablet.er, 650 MG PO BID, (Reported) Entered as Reported by: ANTONIA YEAGER on 10/24/16 1230 Amlodipine Besylate (Amlodipine Besylate) 2.5 Mg Tablet, 2.5 MG PO DAILY, (Reported) Entered as Reported by: ANTONIA YEAGER on 10/24/16 123 Aspirin (Aspirin) 325 Mg Tablet, 1 TAB PO DAILY, #30 Ref 5 (Reported) Entered as Reported by: ANTONIA YEAGER on 10/24/16 123 Famotidine (Pepcid) 20 Mg Tablet, 20 MG PO HS, (Reported) Entered as Reported by: ANTONIA YEAGER on 10/24/16 1230 Gabapentin (Gabapentin ) 100 Mg Capsule, 100 MG PO TID for back pain, #60 Prescribed by: HAROON WRIGHT on 04/02/21 0955 Lidocaine (Lidocaine PATCH ) 1 Each Adh..patch, 1 PATCH TD DAILY for back pain, #7 Prescribed by: HAROON WRIGHT on 04/02/21 0955 Lisinopril/Hydrochlorothiazide (Lisinopril-Hctz 10-12.5 Mg Tab) 1 Each Tablet, 1 TAB PO DAILY, #90 Ref 3 (Reported) Entered as Reported by: ANTONIA YEAGER on 10/24/16 1230 Rosuvastatin Calcium (Crestor) 10 Mg Tablet, 10 MG PO HS for FOR CHOLESTEROL, #30 Ref 0 (Reported) Entered as Reported by: ANTONIA YEAGER on 10/24/16 1230 Scheduled PRN Docusate Sodium (Colace) 100 Mg Capsule, 100 MG PO PRN BID PRN for HARD STOOLS, #30 Prescribed by: HAROON WRIGHT on 04/02/21 0955 Tramadol Hcl (Ultram) 50 Mg Tablet, 1 TAB PO PRN BID PRN for pain MDD 2 Tablet(s), #15 Ref 0 Prescribed by: HAROON WRIGHT on 04/02/21 0956 Patient Instructions Patient Instructions 42 minutes face to face x2, seen with OT after my visit, plans discussed Justicifation of Admission Dx: Justifications for Admission: Justification of Admission Dx: Yes (back pain, could not ambulate, req. proceedure) HAROON WRIGHT MD Apr 02, 2021 10:03
--- NOTE | 2021-04-02 10:06 | SNU/HH DC ---
DISCHARGE WITH HOME HEALTH DISCHARGE INFORMATION: Discharge Date: Apr 02, 2021 Final Diagnosis: Acute intractable lower back pain and leg pain suggestive of radiculopathy History of stroke, with chronic left weakness, and difficulty walking, hemiparesis, and fall risk from physical debility History of hypertension History of dyslipidemia Debilitation Problems Medical Problems: (1) Lumbar radiculopathy, acute Status: Acute (2) Pain Status: Acute Condition on Discharge: Stable CODE STATUS: Code Status: Full HOME HEALTH: Face to Face: I certify this patient is under my care and that I, or a nurse practitioner or physician's registered dental assistant rda working with me, had a face to face encounter that meets the physician face to face encounter requirements with this patient on []. RN For Eval/Treatment: Yes Occupational Therapy For: Evaluation/Treatment Pt Meets Homebound Status: Poor coordination w/ amb., Unsteady balance w/ amb,, Other: (fall risk, left hemiplegia, ) POST DISCHARGE ORDERS: DIET AFTER DISCHARGE: Cardiac FOLLOW-UP: Follow up with: Jaida Suggs < 2 weeks TREATMENT/EQUIPMENT ORDERS: Adaptive Equipment Issued: Front wheeled walker CERTIFICATION STATEMENT: Certification Statement: Certification Statement: Based on the above finding, I certify that this patient is confined to the home and needs intermittent group home care, physical therapy and/or speech therapy, or continues to need occupational therapy.~ This patient is under my care, and I have initiated the establishment of the plan of care.~ This patient will be followed by myself or a community physician who will periodically review the plan of care. Home Meds Active Scripts Tramadol Hcl (ULTRAM) 50 Mg Tablet, 1 TAB PO PRN BID PRN for pain MDD 2 Tablet(s), #15 TAB 0 Refills Prov:HAROON WRIGHT MD 04/02/21 Gabapentin (GABAPENTIN ) 100 Mg Capsule, 100 MG PO TID for back pain, #60 CAP Prov:HAROON WRIGHT MD 04/02/21 Docusate Sodium (COLACE) 100 Mg Capsule, 100 MG PO PRN BID PRN for HARD STOOLS, #30 CAP Prov:HAROON WRIGHT MD 04/02/21 Lidocaine (Lidocaine PATCH ) 1 Each Adh..patch, 1 PATCH TD DAILY for back pain, #7 PATCH Prov:HAROON WRIGHT MD 04/02/21 Reported Medications Acetaminophen (ARTHRITIS PAIN) 650 Mg Tablet.er, 650 MG PO BID, TAB.SR 10/24/16 Aspirin (ASPIRIN) 325 Mg Tablet, 1 TAB PO DAILY, #30 TAB 5 Refills 10/24/16 Famotidine (PEPCID) 20 Mg Tablet, 20 MG PO HS, TAB 10/24/16 Amlodipine Besylate (AMLODIPINE BESYLATE) 2.5 Mg Tablet, 2.5 MG PO DAILY, TAB 10/24/16 Lisinopril/Hydrochlorothiazide (LISINOPRIL-HCTZ 10-12.5 MG TAB) 1 Each Tablet, 1 TAB PO DAILY, #90 TAB 3 Refills 10/24/16 Rosuvastatin Calcium (CRESTOR) 10 Mg Tablet, 10 MG PO HS for FOR CHOLESTEROL, #30 TAB 0 Refills 10/24/16 HAROON WRIGHT MD Apr 02, 2021 10:06
[2021-04-02] MEDS: GABAPENTIN 100 MG CAPSULE. PO SCH ×2 (10:22→15:10)
[2021-04-02] MEDS: FAMOTIDINE 20 MG TABLET. PO SCH (10:22)
[2021-04-02 10:29] VITALS: BP 133/61
--- NOTE | 2021-04-02 12:48 | NUR ---
SW following. Discussed with RN, pt from home, room air, regular diet. Discharge order for home with home health. Pt accepted with [facility]. RN advised no further SW needs.
[2021-04-02 15:00] VITALS: BP 111/69
--- NOTE | 2021-04-02 16:50 | NUR ---
Patient discharge home with [facility] today via wheelchair, accompanied aid. Patient is stable, IV remove, and discharge paperwork given to patient. Patient verbalized understanding of followup and discharge instruction.
--- NOTE | 2021-04-02 19:27 | CONS ---
DATE OF CONSULTATION: 04/02/2021 ATTENDING PHYSICIAN: Dr. Melara. REASON FOR CONSULTATION: The patient was seen at the request of Dr. Melara for rehab evaluation. HISTORY OF PRESENT ILLNESS: This is a 75-year-old right-handed female known to me in the past with known hypertension, cerebrovascular accident in 2006 with residual spastic left hemiparesis, functional left upper extremity, dyslipidemia. She usually gets around using a cane, left ankle foot brace and also uses a scooter. She had a ramp for scooter. The patient lives with her . The patient might have overdid it with her exercise program last week. She started having increasing left-sided lower back and hip area pain without any fall starting on 03/31/2021, admitted through the Emergency Room. X-rays failed to reveal any acute lesion of the hip. It showed some degenerative changes in lumbar spine. The patient had degenerative disk disease of lumbar vertebrae in the past. She had received trigger point injections. She usually takes Aleve for headaches. She does not want to take any narcotics as she is worried about addiction. The patient is not known allergic to any medication. She denies any new weakness or numbness in her extremities. PHYSICAL EXAMINATION: GENERAL: Today revealed a middle-aged female. She is alert, oriented to time, place, person and circumstance and follows commands appropriately. NEUROLOGIC: She moves the left upper extremity and both lower extremities voluntarily. She had residual weakness of left lower extremity antigravity muscles, especially evertors. The patient had increased muscle tone in her left upper extremity with contractures of left shoulder and left elbow. The patient does not have any functional use of left upper extremity. She had 5/5 grade muscle strength in her right upper and lower extremities and deep tendon reflexes are slightly exaggerated on the left side. She had equal perception of touch and pinprick sensation bilaterally. She had tenderness to palpation over left sacroiliac joint area and left trochanteric bursa. No pain on range of motion of her hip joint. She had crepitus on range of motion of her knee joint side. ASSESSMENT: A middle-aged female with old cerebrovascular accident with residual spastic left hemiparesis and functional left upper extremity, degenerative disk disease and degenerative joint disease of lumbar vertebrae with increased back pain. No clinical evidence of ongoing lumbar radiculopathy, left trochanteric bursitis, degenerative joint disease of both knees, history of hypertension, hypercholesterolemia. RECOMMENDATIONS: To proceed with injecting painful left sacroiliac joint area and left trochanteric bursa and to get her up as tolerated. Hopefully, home when medically stable with outpatient followup. Dr. Melara, I appreciate asking me to participate in the care of this interesting patient. I will be glad to see her for followup with you on as needed basis. ALEJANDRO/AUBREE/JADA DR: Ana Lilia TID: [id number]
== END 2021-04-02 16:54 | disposition home health service (06) | DRG 552 ==
LOC: ER 10:04 → 4 NORTH 12:38
PROVIDERS: ADMIT Internal Medicine; ATTEND Internal Medicine
PROC: 3E0U33Z Introduction of Anti-inflammatory into Joints, Percutaneous Approach (ICD-10-PCS; principal; 2021-04-02)
PROC: 3E0U3BZ Introduction of Anesthetic Agent into Joints, Percutaneous Approach (ICD-10-PCS; 2021-04-02)
DX: M47.26 Other spondylosis with radiculopathy, lumbar region (principal); I69.354 Hemiplegia and hemiparesis following cerebral infarction affecting left non-dominant side; E78.00 Pure hypercholesterolemia, unspecified; E78.5 Hyperlipidemia, unspecified; I10 Essential (primary) hypertension; Z91.81 History of falling
CPT/HCPCS: 36415; 73501; 80048; 80053; 81001; 83735; 84100; 85025; 87086; 96374; 96375; J3010; 97110-GP; 97530-GP; 97535-GO; 99285-25; G0378

== ENCOUNTER → 2021-08-29 | Outpatient (CLI) | payer MEDICARE ==
[~2021-08-29] MED LIST changes: +DOCU-109 PO; +GABA-585 PO; +LIDO700A21 TD; -LISI1TAB23 PO; +LISI1TAB35 PO; +TRAM-48 PO
--- NOTE | 2021-08-29 11:33 | KCIC ---
Bilateral digital screening mammograms with 3-D tomosynthesis: Reason for examination: Routine screening. Comparison is made to previous studies dated back to 09/29/2014. Bilateral mammograms in CC and oblique projections were obtained with 2-D imaging and 3-D tomosynthes is imaging on a Siemens Inspiration unit and reviewed on the workstation. Interpretation was made wit h the benefit of CAD. The skin and nipples show no abnormalities. No abnormal axillary lymph nodes are seen. The breast par enchyma shows scattered fatty and fibroglandular density. (Breast density: Category B.) There continu es to be a circumscribed nodule in the lower inner quadrant of the left breast anteriorly which is st able. There are no new dominant masses, suspicious calcifications or architectural distortion. Benign calcifications are present. Impression: No evidence of malignancy. Recommend routine screening. BI-RAD Category 2: Benign. "Our facility is accredited by the [employer] [place] Mammography Program." This patient's information has been entered into a reminder system for the patient to be notified wit h the results of her examination and a target date for the next mammogram. Electronically signed by: Mel Hernandez MD (08/29/2021 11:30 AM) [id number]
== END ==
LOC: KCIC MAMMO 10:18
PROVIDERS: ATTEND Nurse Practitioner Family
DX: Z12.31 Encounter for screening mammogram for malignant neoplasm of breast (principal)
CPT/HCPCS: 77063; 77067